=== PATIENT | female | born 1940 | race Caucasian/White ===

== ENCOUNTER → 2019-01-02 13:32 | Outpatient (CLI) | payer MEDICARE, SELFPAY ==
--- NOTE | 2019-01-02 13:43 | CT_ITS ---
STUDY: CTA NECK WITH CONTRAST REASON FOR EXAM: Female, 78 years old. Carotid artery stenosis. History of hypertension controlled medication. RADIATION DOSAGE (If Supplied By Facility): CTDIvol = ( 19.54 ) mGy, DLP = ( 423.20 ) mGycm TECHNIQUE: CT angiography with multi-detector data acquisition was performed from the aortic arch to the skull base following intravenous administration of IV Isovue 370 100ML. MIP images were reconstructed from the axial data set. Post-processing of the angiographic images was performed, with multiplanar reformation and 3D reconstruction. Individualized dose optimization techniques were used for this CT. COMPARISON: None. FINDINGS: There are multiple incompletely enhancing nodular lesions in the thyroid gland, including the thyroid isthmus. There are multilevel degenerative changes of the cervical spine. The visualized paranasal sinuses are clear. AORTIC ARCH: There is atherosclerotic calcific plaque formation of the aortic arch and great vessels arising from the aortic arch, without a hemodynamically significant stenosis. There is a normal anatomic origin of the brachiocephalic, left common carotid, and left subclavian arteries. Mild atherosclerotic calcific plaquing seen at the takeoff of the right subclavian artery. RIGHT CAROTID ARTERIES: There is normal focal calcific atherosclerotic plaque formation of the common carotid artery, but without a hemodynamically significant stenosis. There is moderate atherosclerotic plaque formation with moderate narrowing of the right carotid bulb. There is severe atherosclerotic plaque formation of the origin of the right internal carotid artery with a near complete occlusion. Normal visualized cervical portion of the right internal carotid artery. Normal origin of the right external carotid artery (ECA). LEFT CAROTID ARTERIES: Normal left common carotid artery (CCA). There is mild to moderate atherosclerotic plaque formation with mild narrowing of the left carotid bulb. There is calcific atherosclerotic plaque formation of the origin of the left internal carotid artery with less than 50% cross sectional diameter stenosis. Normal visualized cervical portion of the left internal carotid artery. Normal origin of the left external carotid artery (ECA). VERTEBRAL ARTERIES: Normal bilateral vertebral arteries. The 4.5 mm diameter left vertebral artery is a dominant vessel compared to the 2.5 mm right vertebral artery. CT/CTA Neck W/WO Contrast IMPRESSION: 1. Severe calcific atherosclerotic plaquing at the right carotid artery bifurcation with near occlusive stenosis of the proximal right internal carotid artery. 2. Calcific atherosclerotic plaquing of left carotid artery bifurcation with less than 50% cross-sectional stenosis of the internal carotid artery. 3. Patent bilateral vertebral arteries. 4. Multiple thyroid nodules. These can be further characterized and followed with ultrasound. N.B. : Dr. Rod MD, confirmed on 01/02/2019 21:24:10 (ET) that the referring physician received the results and does not require a verbal communication. Electronically Signed: Tevin Cisneros MD at 20:10 EDT , Service support ,
[2019-01-02 13:51] LABS: CREATININE FINGERSTICK 0.6 mg/dL (0.55-1.02); EGFR FINGERSTICK > 60.0000 mL/min (>60)
== END ==
PROVIDERS: Family Provider Family Medicine; PCP Family Medicine; Referring Provider Surgery Vascular Surgery; Visit Provider Surgery Vascular Surgery
DX: I65.21 Occlusion and stenosis of right carotid artery (principal)
CPT/HCPCS: 70498; Q9967; A4216

== ENCOUNTER 2020-06-01 15:59 | Outpatient (RCR) | payer MEDICARE, SELFPAY ==
[2019-01-21 14:28] VITALS: BMI 26.9
== END 2020-06-01 23:59 ==
LOC: IMMUN 15:59
PROVIDERS: PCP Family Medicine; Referring Provider Family Medicine; Visit Provider Family Medicine
DX: Z23 Encounter for immunization (principal)
CPT/HCPCS: 0011A; 0012A

== ENCOUNTER → 2020-11-18 09:35 | Outpatient (CLI) | payer MEDICARE, SELFPAY ==
[2019-01-21 14:28] VITALS: BMI 26.9
--- NOTE | 2020-11-18 09:45 | CDU_ITS ---
Reason For Study: CAROID STENOSIS Rt. Velocities/BP Lt. Velocities/BP Prox CCA 112.5/14.7 cm/sec. Prox CCA 113.1/14.4 cm/sec. Mid CCA 115.2/10.8 cm/sec. Mid CCA 136.8/12.6 cm/sec. Dist CCA 108.6/9.5 cm/sec. Dist CCA 91.1/10.8 cm/sec. Prox ICA 96.1/12.1 cm/sec. Prox ICA 91.1/10.8 cm/sec. Mid ICA 84.3/13.0 cm/sec. Mid ICA 127.7/14.4 cm/sec. Dist ICA 105.1/20.4 cm/sec. Dist ICA 122.2/21.7 cm/sec. Rt. ICA/CCA = 105.1/115.2=0.9. Lt. ICA/CCA = 127.7/136.8=0.9. Prox ECA 105.1/20.4 cm/sec. Prox ECA 147.8/8.9 cm/sec. Rt. Vert. 57.0/6.5 cm/sec. Lt. Vert. 58.0/12.5 cm/sec. Right Extracranial There is homogeneous, smooth atherosclerotic plaque noted in the right common carotid artery. There is intimal thickening but no significant atherosclerotic plaque noted in the right internal carotid artery. There is homogeneous, smooth atherosclerotic plaque noted in the right external carotid artery. Antegrade flow is noted in the right vertebral artery. There is heterogeneous, irregular atherosclerotic plaque noted in the right bulb. Left Extracranial There is homogeneous, smooth atherosclerotic plaque noted in the left common carotid artery. There is heterogeneous, smooth atherosclerotic plaque noted in the left internal carotid artery. There is heterogeneous, smooth atherosclerotic plaque noted in the left external carotid artery. Antegrade flow is noted in the left vertebral artery. There is heterogeneous, irregular atherosclerotic plaque noted in the left bulb. Procedure Carotid Duplex 27728. Exam performed in department. VL/Carotid Duplex Ultrasound Interpretation Summary Mild (<50%) stenosis right extracranial internal carotid. Moderate (50-69%) taryn nosis left extracranial internal carotid. Flow within the vertebral arteries is antegrade bilaterally. Ordering Physician: Broderick Romero Referring Physician: Collin Galeano Performed By: Whitney Santillan, FRANSICO, RVT
== END ==
PROVIDERS: PCP Family Medicine; Referring Provider Surgery Vascular Surgery; Visit Provider Surgery Vascular Surgery
DX: I65.23 Occlusion and stenosis of bilateral carotid arteries (principal)
CPT/HCPCS: 93880

== ENCOUNTER → 2022-01-26 | Outpatient (CLI) | payer MEDICARE, SELFPAY ==
--- NOTE | 2022-01-26 08:43 | CDU_ITS ---
Reason For Study: Carotid Stenosis Rt. Velocities/BP Lt. Velocities/BP Prox CCA 91.6/13.5 cm/sec. Prox CCA 91.6/8.0 cm/sec. Mid CCA 93.8/12.4 cm/sec. Mid CCA 87.2/8.0 cm/sec. Dist CCA 87.2/12.4 cm/sec. Dist CCA 79.5/13.5 cm/sec. Prox ICA 69.1/6.5 cm/sec. Prox ICA 91.9/17.0 cm/sec. Mid ICA 83.9/12.6 cm/sec. Mid ICA 60.8/9.7 cm/sec. Dist ICA 71.6/12.6 cm/sec. Dist ICA 59.6/10.9 cm/sec. Rt. ICA/CCA = 0.9. Lt. ICA/CCA = 1.05. Prox ECA 115.8/10.2 cm/sec. Prox ECA 126.6/9.7 cm/sec. Rt. Vert. 27.5/4.0 cm/sec. Lt. Vert. 55.1/11.6 cm/sec. Right Extracranial There is heterogeneous, irregular atherosclerotic plaque noted in the right common carotid artery. There is heterogeneous, smooth atherosclerotic plaque noted in the right internal carotid artery. There is intimal thickening but no significant atherosclerotic plaque noted in the right external carotid artery. Antegrade flow is noted in the right vertebral artery. Left Extracranial There is intimal thickening but no significant atherosclerotic plaque noted in the left common carotid artery. There is heterogeneous, irregular atherosclerotic plaque noted in the left internal carotid artery. There is heterogeneous, irregular atherosclerotic plaque noted in the left external carotid artery. Antegrade flow is noted in the left vertebral artery. Procedure Carotid Duplex [id number]. This is a Carotid Duplex examination using B-mode, color flow and specral Doppler. The exam was diagnostic. Exam performed in department. VL/Carotid Duplex Ultrasound Interpretation Summary Mild (<50%) stenosis right extracranial internal carotid. Mild (<50%) stenosis left extracranial internal carotid. Flow within the vertebral arteries is antegrade bilaterally. Ordering Physician: Broderick Romero Referring Physician: MD Broderick Romero Performed By: Thony Bone RVT
== END | disposition home or self-care (01) ==
LOC: CVS 08:41
PROVIDERS: PCP Family Medicine; Referring Provider Surgery Vascular Surgery; Visit Provider Surgery Vascular Surgery
DX: I65.23 Occlusion and stenosis of bilateral carotid arteries (principal)
CPT/HCPCS: 93880